=== PATIENT | female | born 2000 | race Caucasian/White ===

== ENCOUNTER 2023-07-18 07:25 | Inpatient (IN) | payer BC, OTHER ==
[~2023-07-18] VITALS: Ht 162.6 cm; Wt 84.8 kg
[~2023-07-18 07:25] MED LIST: BACTRIM DS TAB1 EACH PO; CEPHALEXIN500 M1 PO; CLARITIN10 MG PO; ESCITALOPRAM OX10 MG PO; FLONASE ALLERG9.9 ML NS; FLUTICASONE PRO16 GM NAS; HYDROXYZINE HCL25 MG PO; PYRIDIUM200 MG PO
[2023-07-18 09:11] VITALS: BP 115/76
[2023-07-18 09:49] LABS: HEMATOCRIT 43.6 % (35.0-50.0); MCHC 34.4 g/dl (30-36); MCV 87.4 fl (81-99); RBC 4.99 M/ul (4.3-5.7); RDW 13.6 (10.5-15.0)
[2023-07-18 10:11] LABS: AMPHETAMINES, URINE NEGATIVE (NEGATIVE); BARBITURATES, URINE NEGATIVE (NEGATIVE); BENZODIAZEPINE, URINE NEGATIVE (NEGATIVE); BUPRENORPHINE, URINE NEGATIVE (NEGATIVE); CANNABINOID, URINE NEGATIVE (NEGATIVE); COCAINE, URINE NEGATIVE (NEGATIVE); ECSTASY, URINE NEGATIVE (NEGATIVE); FENTANYL, URINE NEGATIVE (NEGATIVE); METHADONE, URINE NEGATIVE (NEGATIVE); OPIATES, URINE NEGATIVE (NEGATIVE); OXYCODONE, URINE NEGATIVE (NEGATIVE); PHENCYCLIDINE, URINE NEGATIVE (NEGATIVE)
[2023-07-18 11:33] LABS: ABO O; ANTIBODY SCREEN POSITIVE; RH NEGATIVE
--- NOTE | 2023-07-18 12:25 | PR ---
[facility] [address] [place], [place] [address] Signed Progress Notes IP Datetime Report Generated by CPN: 07/18/2023 12:25 PROGRESS NOTES: [id number] Impression: Normal Progression of Labor; Reassuring Heart Rate Procedures: Artificial ROM Plan: Continue Present Management; Anticipate Vaginal Delivery Informed Consent Obtain: Vaginal Delivery VITAL SIGNS: [id number] Vital Signs: Reviewed; Within Normal Limits EXAM: [id number] Dilatation: 5.5 Effacement: 95 Station: -2 Contractions: q 2-3 min MEMBRANES: [id number] Comments: Pt seen and examined. Doing well. Comfortable w/ epidural. Discussed AROM and pt desires. AROM easily performed for moderate amount of clear fluid. Mother and baby tolerated well FETUS A: [id number] FHR Baseline: 135 Variability: Moderate 6-25bpm Accelerations: 15X15 Decelerations: None FHR Category: Category I Presentation: Vertex Comments on Fetus A: No evidence of metabolic acidosis FETUS B: [id number] Signing Physician: Francois Ulloa DO Copies: ~ *Electronically Signed* 07/18/23 2675 FRANCOIS ULLOA (SIOBHAN) DO PATIENT NAME: ALDO SHI PROGRESS NOTE DATE OF : 02 PHYSICIAN: FRANCOIS ULLOA (SIOBHAN) DO RPT #: [id number] REPORT IS CONFIDENTIAL AND NOT TO BE RELEASED WITHOUT AUTHORIZATION
[2023-07-18 13:21] LABS: INFLUENZA B NAA NEGATIVE (NEGATIVE); RESPIRATORY SYNCYTIAL VIR NAA NEGATIVE (NEGATIVE)
--- NOTE | 2023-07-18 17:18 | PR ---
[facility] [address] [facility] [place], [place] [address] Signed Progress Notes IP Datetime Report Generated by CPN: 07/18/2023 17:18 PROGRESS NOTES: [id number] Impression: Normal Progression of Labor; Reassuring Heart Rate Procedures: Sterile Vag Exam Plan: Continue Present Management; Anticipate Vaginal Delivery Informed Consent Obtain: Vaginal Delivery VITAL SIGNS: [id number] Vital Signs: Reviewed; Within Normal Limits EXAM: [id number] Dilatation: 10.0 Effacement: 100 Station: 0 Contractions: q 2-3 minutes MEMBRANES: [id number] Comments: Pt seen and examined. Doing well. Comfortable w/ contractions. Reviewed complete and anticipated course of 2nd stage of labor. Anticipate soon FETUS A: [id number] FHR Baseline: 135 Variability: Moderate 6-25bpm Accelerations: 15X15 Decelerations: None FHR Category: Category I Presentation: Vertex Comments on Fetus A: No evidence of metabolic acidosis FETUS B: [id number] Signing Physician: Francois Ulloa DO Copies: ~ *Electronically Signed* 07/18/23 8393 FRANCOIS ULLOA (SIOBHAN) DO PATIENT NAME: ALDO SHI PROGRESS NOTE DATE OF : 02 PHYSICIAN: FRANCOIS ULLOA (SIOBHAN) DO RPT #: [id number] REPORT IS CONFIDENTIAL AND NOT TO BE RELEASED WITHOUT AUTHORIZATION
--- NOTE | 2023-07-18 17:47 | PR ---
[facility] [address] [place], [place] [address] Signed Progress Notes IP Datetime Report Generated by CPN: 07/18/2023 17:47 PROGRESS NOTES: [id number] Impression: Normal Progression of Labor; Reassuring Heart Rate Procedures: Sterile Vag Exam Plan: Continue Present Management; Anticipate Vaginal Delivery Informed Consent Obtain: Vaginal Delivery VITAL SIGNS: [id number] Vital Signs: Reviewed; Within Normal Limits EXAM: [id number] Dilatation: 10.0 Effacement: 100 Station: 0 Contractions: q 2-4 minutes MEMBRANES: [id number] Comments: Pt seen and examined. Doing well. Comfortable w/ contractions. Pushing well w/ good maternal effort. Will continue pushing efforts FETUS A: [id number] FHR Baseline: 135 Variability: Moderate 6-25bpm Accelerations: 15X15 Decelerations: None FHR Category: Category I Presentation: Vertex Comments on Fetus A: No evidence of metabolic acidosis FETUS B: [id number] Signing Physician: Francois Ulloa DO Copies: ~ *Electronically Signed* 07/18/23 7078 FRANCOIS ULLOA (SIOBHAN) DO PATIENT NAME: ALDO SHI PROGRESS NOTE DATE OF : 02 PHYSICIAN: FRANCOIS ULLOA (SIOBHAN) DO RPT #: [id number] REPORT IS CONFIDENTIAL AND NOT TO BE RELEASED WITHOUT AUTHORIZATION
[2023-07-19 05:37] LABS: HEMATOCRIT 40.1 % (35.0-50.0); HEMOGLOBIN 13.5 g/dL (12.0-18.0); MCH 29.8 (27-36); MCHC 33.7 g/dl (30-36); MCV 88.6 fl (81-99); RBC 4.52 M/ul (4.3-5.7); RDW 13.3 (10.5-15.0)
[2023-07-19 13:20] LABS: ANTIBODY IDENTIFICATION ANTI-D
--- NOTE | 2023-07-20 09:58 | PR ---
[facility] [address] [place], [place] [address] Signed PP Progress Notes Datetime Report Generated by CPN: 07/20/2023 09:58 SUBJECTIVE: [id number] Pain: Within Normal Limits Nausea/Vomiting: Denies Flatus: Yes Vital Signs: [id number] Vital Signs: Reviewed; Within Normal Limits EXAM: Ongoing Cardiovascular: Not Done Respiratory: Not Done Abdomen/Uterus: Normal Lochia: Normal Vulva/Perineum: Not Done Breasts: Not Done CVA Tenderness: Not Done Extremities: Normal Incision: Not Applicable Progress: Normal Exam Comments: Fundus firm U-2 nontender IMPRESSION/PLAN/PROCEDURES: [id number] Impression: Normal Progression Plan: Discharge Procedures: None Progress Notes: S: 22 yo s/p vaginal delivery. PPD #2. Doing well. Denies LOVELL, CP, SOB, F/C, N/V, RUQ pain, changes in vision, vaginal discharge. Tolerating regular diet, ambulating, voiding, pain controlled. O: AFVSS Abd: Soft, non-tender. Fundus firm and below umbilicus. Musc: RIGGS. A/P: Patient well. Meeting all hopital milestones. Able to void after removal of Hines. Will discharge home today. Signing Physician: Abdelrahman Macedo MD *Electronically Signed* 07/20/23 0958 ABDELRAHMAN MACEDO MD PATIENT NAME: ALDO SHI PROGRESS NOTE DATE OF : 02 PHYSICIAN: ABDELRAHMAN MACEDO MD RPT #: [id number] REPORT IS CONFIDENTIAL AND NOT TO BE RELEASED WITHOUT AUTHORIZATION
--- NOTE | 2023-07-20 10:46 | NUR ---
MOTHER INDISPOSED. DID NOT DISTURB. PRAYED SILENTLY FOR GOOD BEGINNINGS AND ONGOING BLESSING.
[2023-07-21] MEDS ORDERED: ZOLOFT50 MG (20:18)
== END 2023-07-20 13:10 | disposition home or self-care (01) | DRG 806 ==
LOC: FBCO 07:25 → FBC 08:30
PROVIDERS: ADMIT Obstetrics & Gynecology; ATTEND Obstetrics & Gynecology
PROC: 10E0XZZ Delivery of Products of Conception, External Approach (ICD-10-PCS; principal; 2023-07-18)
PROC: 0KQM0ZZ Repair Perineum Muscle, Open Approach (ICD-10-PCS; 2023-07-18)
PROC: 3E0R3BZ Introduction of Anesthetic Agent into Spinal Canal, Percutaneous Approach (ICD-10-PCS; 2023-07-18)
PROC: 00HU33Z Insertion of Infusion Device into Spinal Canal, Percutaneous Approach (ICD-10-PCS; 2023-07-18)
PROC: 10907ZC Drainage of Amniotic Fluid, Therapeutic from Products of Conception, Via Natural or Artificial Opening (ICD-10-PCS; 2023-07-18)
DX: O76 Abnormality in fetal heart rate and rhythm complicating labor and delivery (principal); O71.4 Obstetric high vaginal laceration alone; Z37.0 Single live birth; O99.824 Streptococcus B carrier state complicating childbirth; Z3A.39 39 weeks gestation of pregnancy; O70.1 Second degree perineal laceration during delivery; O69.1XX0 Labor and delivery complicated by cord around neck, with compression, not applicable or unspecified; O99.344 Other mental disorders complicating childbirth; F41.9 Anxiety disorder, unspecified; O99.334 Smoking (tobacco) complicating childbirth; F17.210 Nicotine dependence, cigarettes, uncomplicated; Z11.52 Encounter for screening for COVID-19
CPT/HCPCS: 01960; 36415; 51701; 80307; 85027; 86850; 86870; 86900; 86901; 87502; A9270; J2540; J2795; J3010; J7121; U0002

== ENCOUNTER 2023-07-21 19:27 | Emergency (ER) | payer BC, OTHER ==
[~2023-07-21] VITALS: Ht 162.6 cm; Wt 81.2 kg
[2023-07-21] MEDS ORDERED: ZOLOFT50 MG (20:18)
[2023-07-21 20:31] VITALS: BP 115/70
== END 2023-07-21 20:25 | disposition home or self-care (01) ==
LOC: ED 19:27
DX: O90.89 Other complications of the puerperium, not elsewhere classified (principal); R10.2 Pelvic and perineal pain; F17.200 Nicotine dependence, unspecified, uncomplicated; G40.909 Epilepsy, unspecified, not intractable, without status epilepticus; Z88.8 Allergy status to other drugs, medicaments and biological substances; Z79.899 Other long term (current) drug therapy
CPT/HCPCS: 99283

== ENCOUNTER 2024-05-06 09:55 | Day surgery (SDC) | payer BC, OTHER ==
[~2024-05-06] VITALS: Ht 162.6 cm; Wt 83.0 kg
[~2024-05-06 09:55] MED LIST changes: +HYDROCODON-ACE1 EA10 PO; +IBLOOD GLUCOSE TEST STRIP 1 EA TEST VI PRN; +LACTATED RINGER'S 1,000 ML IV SCH; +LIDOCAINE HCL 1% 5 ML SDV INJ ONE; +OMEPRAZOLE20 M1 PO; +PRENA1 PEARL S1 EACH PO; +ZOLOFT50 MG PO
[2024-05-06 10:13] VITALS: BP 119/49
[2024-05-06] MEDS ORDERED: propofoL 200 MG/20 ML VIAL ONE (11:34)
[2024-05-06] MEDS ORDERED: KETAMINE in NS 50 MG/5 ML SYR ONE (11:34)
[2024-05-06] MEDS ORDERED: ondansetron HCL 4 MG/2 ML VIAL ONE (11:34)
[2024-05-06] MEDS ORDERED: DEXAMETHASONE SOD PHOS 4 MG/ML VIAL ONE (11:34)
[2024-05-06] MEDS ORDERED: fentaNYL citrate 100 MCG/2 ML VIAL ONE (11:34)
[2024-05-06] MEDS ORDERED: ACETAMINOPHEN 1,000 MG/100 ML VIAL ONE (11:35)
[2024-05-06] MEDS ORDERED: LIDOCAINE HCL 2% 5 ML SDV ONE (11:35)
[2024-05-06] MEDS ORDERED: NALOXONE HCL 0.4 MG SYR IV PRN ×2 (11:45→13:15)
[2024-05-06] MEDS ORDERED: KETOROLAC TROMETHAMINE 30 MG/ML VIAL IV PRN (11:45)
[2024-05-06] MEDS ORDERED: IBLOOD GLUCOSE TEST STRIP 1 EA TEST VI PRN (11:45)
[2024-05-06] MEDS ORDERED: ondansetron HCL 4 MG/2 ML VIAL IV PRN (11:45)
[2024-05-06] MEDS ORDERED: fentaNYL citrate 50 MCG/ML SDV IV PRN (11:45)
--- NOTE | 2024-05-06 12:53 | NUR ---
05/06/24 1253 Concepción Arroyo 1224 PT ARRIVED IN PACU NON RESPONSIVE TO NOXIOUS STIMULI. 1240 PT DROWSY WITH NO C/O'S.
[2024-05-06 13:14] VITALS: BP 96/64
[2024-05-06] MEDS ORDERED: MORPHINE SULFATE 10 MG/ML VIAL IV PRN (13:15)
[2024-05-06] MEDS ORDERED: OXYCODONE/APAP 5/325 TAB PO PRN (13:15)
[2024-05-06] MEDS ORDERED: FAMOTIDINE 20 MG TAB PO PRN (13:15)
[2024-05-06] MEDS ORDERED: MAGNESIUM HYDROXIDE/AL HYDROX 30 ML CUP PO PRN (13:15)
[2024-05-06] MEDS ORDERED: bisacodyL 10 MG SUPP PR PRN (13:15)
[2024-05-06] MEDS ORDERED: FAMOTIDINE 20 MG/ 2 ML VIAL IV PRN (13:15)
[2024-05-06] MEDS ORDERED: SIMETHICONE 125 MG TABLET CHEWABLE PO PRN (13:15)
[2024-05-06] MEDS ORDERED: SIMETHICONE 125 MG TABLET CHEWABLE PO SCH (17:00)
[2024-05-06] MEDS ORDERED: SENNOSIDES/DOCUSATE 1 EA TAB PO SCH (21:00)
[2024-05-06] MEDS ORDERED: MINERAL OIL/CHONDRUS 30 ML BTL PO SCH (21:00)
== END 2024-05-06 13:25 | disposition home or self-care (01) ==
LOC: DS 09:55
PROVIDERS: ATTEND Obstetrics & Gynecology
PROC: 0UB98ZZ Excision of Uterus, Via Natural or Artificial Opening Endoscopic (ICD-10-PCS; principal; 2024-05-06 11:30)
DX: N84.0 Polyp of corpus uteri (principal); N94.89 Other specified conditions associated with female genital organs and menstrual cycle
CPT/HCPCS: 00952; J0131; J1100; J2001; J2405; J2704; J3010; J3490; J7121

== ENCOUNTER 2024-09-27 19:22 | Emergency (ER) | payer BC, OTHER ==
[~2024-09-27] VITALS: Ht 162.6 cm; Wt 89.8 kg
[~2024-09-27 19:22] MED LIST changes: -IBLOOD GLUCOSE TEST STRIP 1 EA TEST VI PRN; -LACTATED RINGER'S 1,000 ML IV SCH; -LIDOCAINE HCL 1% 5 ML SDV INJ ONE
[2024-09-27] MEDS ORDERED: VANCOMYCIN HCL125 MG PO (19:32)
[2024-09-27] MEDS ORDERED: METRONIDAZOLE70 GM VAGINAL (19:33)
[2024-09-27] MEDS ORDERED: ondansetron HCL 4 MG/2 ML VIAL IV ONE (20:15)
[2024-09-27 20:19] LABS: BASOPHILS 3.4 % (0-2); EOSINOPHILS 1.2 % (0-6); HEMATOCRIT 43.4 % (35.0-50.0); HEMOGLOBIN 14.4 g/dL (12.0-18.0); LYMPHOCYTES 15.8 % (24-44); MCHC 33.1 g/dl (30-36); MCV 87.5 fl (81-99); MONOCYTES 5.5 % (0-12); NEUTROPHILS 74.1 % (39-80); PLATELET COUNT 319 K/uL (140-440); RBC 4.96 M/ul (4.3-5.7); RDW 14.5 (10.5-15.0)
[2024-09-27 20:25] LABS: BILIRUBIN, URINE NEGATIVE (negative); BLOOD/HGB, URINE LARGE (Negative); KETONE, URINE NEGATIVE (Negative); LEUK ESTERASE, URINE NEGATIVE (negative); NITRITE, URINE NEGATIVE (negative); PH, URINE 6.5 (5-7)
[2024-09-27 20:33] LABS: ALBUMIN/GLOBULIN RATIO 1.08 (1.1-2.4); ANION GAP 14.5 (7-21); BILIRUBIN, TOTAL 0.3 ng/dL (0.2-1.0); BUN/CREATININE RATIO 14.45 (6.0-28.6); CALCIUM 8.9 mg/dL (8.5-10.1); CREATININE, SERUM 0.83 mg/dL (0.55-1.02); POTASSIUM 4.5 mmol/L (3.5-5.1); PROTEIN, TOTAL 7.7 g/dL (6.4-8.2)
[2024-09-27 20:36] LABS: BACTERIA, URINE RARE /hpf (negative); CRYSTALS, URINE AMORPHOUS PHOSPH 1+ (0-1+); EPITHELIAL CELLS, URINE SQUAMOUS 1+ /lpf (0-1+)
[2024-09-27 20:37] LABS: CASTS, URINE GRANULAR 1+ \\lpf; COLLECTION TYPE, URINE CLEAN CATCH; REFLEX CULTURE, URINE No (No)
[2024-09-27] MEDS ORDERED: ONDANSETRON ODT4 MG PO (21:14)
[2024-09-27] MEDS ORDERED: ONDANSETRON 4 MG HOME.PACK SL ONE (21:15)
[2024-09-27 21:30] VITALS: BP 107/50
== END 2024-09-27 21:30 | disposition home or self-care (01) ==
LOC: ED 19:22
PROVIDERS: Internal Medicine
DX: R10.32 Left lower quadrant pain (principal); G40.909 Epilepsy, unspecified, not intractable, without status epilepticus; F17.200 Nicotine dependence, unspecified, uncomplicated; Z88.8 Allergy status to other drugs, medicaments and biological substances; Z79.2 Long term (current) use of antibiotics; Z79.899 Other long term (current) drug therapy
CPT/HCPCS: 36415; 80053; 81001; 83690; 83735; 84703; 85025; 96374; 99284-25; A9270; J2405